=== PATIENT | female | born 1970 | race Caucasian/White ===

== ENCOUNTER 2018-03-25 18:37 | Emergency (ER) | payer MEDICAID, OTHER ==
[~2018-03-25] VITALS: Ht 167.6 cm; Wt 76.7 kg
[2018-03-25 18:59] VITALS: BP 133/72
[2018-03-25] MEDS ORDERED: diphenhdrAMINE HCL 50 MG/1 ML VL IV ONE (19:30)
[2018-03-25] MEDS ORDERED: FAMOTIDINE (10MG/ML) 2ML VL IV ONE (19:30)
[2018-03-25] MEDS ORDERED: methylPREDNISolone SOD SUCC 125 MG/2 ML VL IV ONE (19:30)
[2018-03-25] MEDS ORDERED: EPINEPHrine HCL 1 MG/1 ML AMP SC ONE (19:30)
== END 2018-03-25 20:18 | disposition home or self-care (01) ==
LOC: ER 18:37
DX: T78.40XA Allergy, unspecified, initial encounter (principal)
CPT/HCPCS: 96372; 96374; 96375; 99284; J0171; J2930; J3490

== ENCOUNTER 2019-09-20 10:00 | Emergency (ER) | payer MEDICAID ==
[~2019-09-20] VITALS: Ht 167.6 cm; Wt 77.1 kg
[2019-09-20 10:57] VITALS: BP 124/88
[2019-09-20] MEDS ORDERED: IBUPROFEN 600 MG TAB PO ONE (12:15)
== END 2019-09-20 12:43 | disposition home or self-care (01) ==
LOC: ER 10:00
DX: L70.8 Other acne (principal); R19.7 Diarrhea, unspecified; I10 Essential (primary) hypertension; J44.9 Chronic obstructive pulmonary disease, unspecified

== ENCOUNTER 2022-01-08 09:34 | Emergency (ER) | payer MEDICAID ==
[~2022-01-08] VITALS: Ht 167.6 cm; Wt 77.1 kg
[2022-01-08 10:17] VITALS: BP 141/99
[2022-01-08] MEDS ORDERED: KETOROLAC TROMETH 60MG/2ML VIAL IM ONE (10:30)
[2022-01-08] MEDS ORDERED: IBUP800T27 PO (10:32)
[2022-01-08] MEDS ORDERED: BACL10TA PO (10:32)
== END 2022-01-08 10:52 | disposition home or self-care (01) ==
LOC: ER 09:34
DX: M54.41 Lumbago with sciatica, right side (principal); M62.838 Other muscle spasm
CPT/HCPCS: 96372; 99283; J1885

== ENCOUNTER 2022-03-30 10:26 | Emergency (ER) | payer MEDICAID ==
[~2022-03-30] VITALS: Ht 167.6 cm; Wt 75.0 kg
[~2022-03-30 10:26] MED LIST: BACL10TA PO; IBUP800T27 PO
[2022-03-30] MEDS ORDERED: diphenhdrAMINE HCL 50 MG/1 ML VL IM ONE (12:15)
[2022-03-30 12:19] VITALS: BP 170/78
[2022-03-30] MEDS ORDERED: CLIN300C8 PO (12:24)
[2022-03-30] MEDS ORDERED: DIPH25CA66 PO (12:24)
== END 2022-03-30 14:03 | disposition home or self-care (01) ==
LOC: ER 10:26
DX: L03.317 Cellulitis of buttock (principal); T78.40XA Allergy, unspecified, initial encounter; F17.210 Nicotine dependence, cigarettes, uncomplicated; F12.10 Cannabis abuse, uncomplicated; F15.10 Other stimulant abuse, uncomplicated; J44.9 Chronic obstructive pulmonary disease, unspecified; I10 Essential (primary) hypertension; Z59.00 Homelessness unspecified; Z98.51 Tubal ligation status; X58.XXXA Exposure to other specified factors, initial encounter
CPT/HCPCS: 96372; 99283; J1200

== ENCOUNTER 2022-11-29 07:53 | Emergency (ER) | payer MEDICAID ==
[~2022-11-29] VITALS: Ht 167.6 cm; Wt 71.8 kg
[~2022-11-29 07:53] MED LIST changes: +CLIN300C70 PO; +DIPH25CA66 PO; +IBUP-1456 PO; -IBUP800T27 PO
[2022-11-29 08:20] VITALS: BP 115/84
[2022-11-29 08:26] LABS: Urine Bacteria MANY /hpf (None Seen); Urine Blood 1+ /uL (Negative); Urine Hyaline Cast FEW /lpf (0 - 2); Urine Mucus FEW (None Seen); Urine Specific Gravity 1.023 (1.001-1.035); Urine WBC 65 /hpf (0 - 5)
[2022-11-29] MEDS ORDERED: cefTRIAXone SOD 500 MG VL IM ONE (09:00)
[2022-11-29] MEDS ORDERED: AZITHROMYCIN 250 MG TAB PO ONE (09:00)
[2022-11-29] MEDS ORDERED: METR-344 PO (09:42)
[2022-11-29] MEDS ORDERED: DOXY-286 PO (09:42)
== END 2022-11-29 10:00 | disposition home or self-care (01) ==
LOC: ER 07:53
DX: N76.0 Acute vaginitis (principal); N39.0 Urinary tract infection, site not specified; Z20.2 Contact with and (suspected) exposure to infections with a predominantly sexual mode of transmission
CPT/HCPCS: 81001; 81025; 87070; 87210; 87491; 87591; 96372; 99283; J0696